=== PATIENT | male | born 1965 | race Caucasian/White ===

== ENCOUNTER 2017-08-18 05:09 | Emergency (ER) | payer BC ==
[~2017-08-18] VITALS: Ht 185.4 cm; Wt 97.6 kg
[~2017-08-18 05:09] MED LIST: ALPR-623 PO; IRBE150T51 PO; NITR0.4T51 SL; PANT40TA4 PO; TRAZ-143 PO
[2017-08-18] MEDS ORDERED: LORazepam 2 mg/ml vial IM ONE (05:25)
[2017-08-18] MEDS ORDERED: dexamethasone sod phosphate 10mg/ml inj IV STA (05:32)
[2017-08-18] MEDS ORDERED: LORazepam 2 mg/ml vial IV ONE (05:35)
[2017-08-18] MEDS ORDERED: ALB0.5UD IH (07:07)
[2017-08-18] MEDS ORDERED: albuterol 2.5 MG/3 ML nebule NEB ONE (07:40)
[2017-08-18 08:22] VITALS: BP 187/117
== END 2017-08-18 08:25 | disposition home or self-care (01) ==
LOC: ER 05:10
DX: F41.1 Generalized anxiety disorder (principal); R06.02 Shortness of breath; I10 Essential (primary) hypertension; Z90.49 Acquired absence of other specified parts of digestive tract; Z98.890 Other specified postprocedural states; Z88.8 Allergy status to other drugs, medicaments and biological substances; Z91.013 Allergy to seafood; Z79.899 Other long term (current) drug therapy
CPT/HCPCS: 71045; 93005; 94640; 94760; 96374; 96375; 99284; J1100; J2060

== ENCOUNTER 2018-07-16 20:32 | Emergency (ER) | payer BC ==
[~2018-07-16] VITALS: Ht 182.9 cm; Wt 84.4 kg
[~2018-07-16 20:32] MED LIST changes: -TRAZ-143 PO; +TRAZ-218 PO
[2018-07-16 21:37] VITALS: BP 157/116
[2018-07-16] MEDS ORDERED: normal saline 1000ML IV soln IVB ONE (21:50)
[2018-07-16] MEDS ORDERED: benzonatate 100mg capsule PO ONE (21:50)
[2018-07-16] MEDS ORDERED: LORazepam 2 mg/ml vial IV ONE (21:50)
[2018-07-16] MEDS ORDERED: ALBU18HF2 INH (21:52)
[2018-07-16] MEDS ORDERED: BENZ-16 PO (21:52)
[2018-07-16] MEDS ORDERED: INHA1INH2 (21:52)
[2018-07-16 22:18] LABS: BASOPHILS % (AUTO) 0.5 % (0-1); EOSINOPHILS # (AUTO) 0.2 X10'3 (0-0.9); EOSINOPHILS % (AUTO) 2.5 % (0-6); HEMATOCRIT 44.8 % (42.0-52.0); HEMOGLOBIN 15.3 g/dl (14.0-17.9); LYMPHOCYTES # (AUTO) 1.7 X10'3 (1.1-4.8); LYMPHOCYTES % (AUTO) 22.8 % (21-51); MEAN CORPUSCULAR HEMOGLOBIN 29.3 PG (27.0-31.0); MEAN CORPUSCULAR HGB CONC 34.1 g/dL (33.0-36.5); MEAN CORPUSCULAR VOLUME 86.1 FL (78-98); MONOCYTES # (AUTO) 0.4 X10'3 (0-0.9); MONOCYTES % (AUTO) 6.1 % (2-12); NEUTROPHILS # (AUTO) 4.9 X10'3 (1.8-7.7); NEUTROPHILS % (AUTO) 68.1 % (42-75); PLATELET COUNT 319 X10'3 (140-440); RED BLOOD COUNT 5.21 X10'6 (4.70-6.10); RED CELL DISTRIBUTION WIDTH 13.6 % (11.5-14.5); WHITE BLOOD COUNT 7.2 X10'3 (4.5-11.0)
[2018-07-16 22:34] LABS: ALANINE AMINOTRANSFERASE 20 U/L (12-78); ALBUMIN 3.7 G/DL (3.4-5.0); ALKALINE PHOSPHATASE 68 IU/L (46-116); ANION GAP 12 (8-16); ASPARTATE AMINO TRANSFERASE 13 U/L (10-37); BILIRUBIN,TOTAL 0.5 MG/DL (0.1-1.0); BLOOD UREA NITROGEN 17 MG/DL (7-18); CALCIUM 8.8 MG/DL (8.5-10.1); CHLORIDE 103 MMOL/L (99-107); CREATININE 1.06 MG/DL (0.60-1.10); GLUCOSE 112 MG/DL (70-104); POTASSIUM 3.4 MMOL/L (3.5-5.1); SODIUM 141 MMOL/L (135-145); TOTAL CARBON DIOXIDE 26.2 MMOL/L (24-32); TOTAL PROTEIN 7.5 G/DL (6.4-8.2); eGFR 73 ML/MIN
== END 2018-07-16 23:12 | disposition home or self-care (01) ==
LOC: ER 20:33
DX: R06.02 Shortness of breath (principal); R05 Cough; R06.00 Dyspnea, unspecified; J02.9 Acute pharyngitis, unspecified; R09.89 Other specified symptoms and signs involving the circulatory and respiratory systems; I10 Essential (primary) hypertension; Z90.49 Acquired absence of other specified parts of digestive tract; Z91.013 Allergy to seafood; Z79.899 Other long term (current) drug therapy
CPT/HCPCS: 36415; 71046; 80053; 85025; 93005; 96374; 99284; J2060; J7030

== ENCOUNTER 2018-12-30 23:06 | Emergency (ER) | payer BC ==
[~2018-12-30] VITALS: Ht 182.9 cm; Wt 96.4 kg
[~2018-12-30 23:06] MED LIST changes: +ALBU18HF2 INH; +INHA1INH2; -TRAZ-218 PO; +TRAZ-251 PO
[2018-12-30 23:45] LABS: BASOPHILS % (AUTO) 0.6 % (0-1); EOSINOPHILS # (AUTO) 0.2 X10'3 (0-0.9); EOSINOPHILS % (AUTO) 2.7 % (0-6); HEMATOCRIT 45.1 % (42.0-52.0); HEMOGLOBIN 15.5 g/dl (14.0-17.9); LYMPHOCYTES # (AUTO) 1.5 X10'3 (1.1-4.8); MEAN CORPUSCULAR HEMOGLOBIN 29.8 PG (27.0-31.0); MEAN CORPUSCULAR HGB CONC 34.3 g/dL (33.0-36.5); MEAN CORPUSCULAR VOLUME 86.8 FL (78-98); MONOCYTES # (AUTO) 0.6 X10'3 (0-0.9); MONOCYTES % (AUTO) 8.8 % (2-12); NEUTROPHILS # (AUTO) 4.9 X10'3 (1.8-7.7); NEUTROPHILS % (AUTO) 66.9 % (42-75); PLATELET COUNT 271 X10'3 (140-440); RED BLOOD COUNT 5.19 X10'6 (4.70-6.10); RED CELL DISTRIBUTION WIDTH 13.4 % (11.5-14.5); WHITE BLOOD COUNT 7.3 X10'3 (4.5-11.0)
--- NOTE | 2018-12-30 23:48 | NUR ---
Patient laying on gurney, reports headache 10/10, BP is elevated. Labs and EKG completed, pending MD lafleur
[2018-12-30 23:53] LABS: PARTIAL THROMBOPLASTIN TIME 28 SECONDS (22-32)
[2018-12-30 23:56] LABS: ALANINE AMINOTRANSFERASE 27 U/L (12-78); ALBUMIN 3.6 G/DL (3.4-5.0); ALKALINE PHOSPHATASE 57 IU/L (46-116); ANION GAP 10 (8-16); ASPARTATE AMINO TRANSFERASE 14 U/L (10-37); BILIRUBIN,TOTAL 0.5 MG/DL (0.1-1.0); BLOOD UREA NITROGEN 15 MG/DL (7-18); BUN/CREATININE RATIO 12.8 (5.4-32.0); CHLORIDE 105 MMOL/L (99-107); CREATININE 1.17 MG/DL (0.60-1.10); GLUCOSE 103 MG/DL (70-104); POTASSIUM 3.5 MMOL/L (3.5-5.1); SODIUM 142 MMOL/L (135-145); TOTAL CARBON DIOXIDE 27.3 MMOL/L (24-32); TOTAL PROTEIN 7.2 G/DL (6.4-8.2); eGFR 65 ML/MIN
[2018-12-31] MEDS ORDERED: amLODIPine 5mg tablet PO ONE (01:05)
[2018-12-31] MEDS ORDERED: normal saline 1000ML IV soln IVB ONE (01:05)
[2018-12-31] MEDS ORDERED: proCHLORperazine 10 MG/2 ml inj IV ONE (01:05)
[2018-12-31] MEDS ORDERED: hydrALAZINE 20mg/ml inj. IV ONE (01:05)
[2018-12-31] MEDS ORDERED: diphenhydrAMINE 50 mg/ml inj IV ONE (02:15)
[2018-12-31] MEDS ORDERED: morphine 4 MG/ML inj SYRINge IV ONE (02:15)
[2018-12-31] MEDS ORDERED: LORazepam 2 mg/ml vial IV ONE (02:25)
[2018-12-31 03:54] VITALS: BP 157/117
[2018-12-31] MEDS ORDERED: hydrALAZINE 20mg/ml inj. IV STA (04:05)
[2018-12-31] MEDS ORDERED: hyDRALAzine 10mg tablet PO SCH (04:05)
[2018-12-31] MEDS ORDERED: AMLO10TA4 PO (04:45)
== END 2018-12-31 04:57 | disposition home or self-care (01) ==
LOC: ER 23:07
DX: I10 Essential (primary) hypertension (principal); R42 Dizziness and giddiness; R51 Headache; R79.1 Abnormal coagulation profile; Z90.49 Acquired absence of other specified parts of digestive tract; Z98.890 Other specified postprocedural states; Z60.2 Problems related to living alone; Z88.6 Allergy status to analgesic agent; Z91.013 Allergy to seafood; Z91.041 Radiographic dye allergy status; Z79.899 Other long term (current) drug therapy
CPT/HCPCS: 36415; 70450; 71045; 80053; 84484; 85025; 85610; 85730; 93005; 96361; 96374; 96375; 96376; 99284; J0360; J0780; J1200; J2060; J2270; J7030

== ENCOUNTER 2019-07-21 20:24 | Inpatient (IN) | payer BC ==
[~2019-07-21] VITALS: Ht 182.9 cm; Wt 102.3 kg
[~2019-07-21 20:24] MED LIST changes: -ALPR-623 PO; +AMLO10TA4 PO; -INHA1INH2; -IRBE150T51 PO; -NITR0.4T51 SL; -PANT40TA4 PO; -TRAZ-251 PO
[2019-07-21] MEDS ORDERED: aspirin 81mg tab.chew PO ONE (20:30)
[2019-07-21 20:51] LABS: BASOPHILS # (AUTO) 0.1 X10'3 (0-0.2); BASOPHILS % (AUTO) 0.9 % (0-1); EOSINOPHILS # (AUTO) 0.2 X10'3 (0-0.9); EOSINOPHILS % (AUTO) 2.7 % (0-6); HEMATOCRIT 45.4 % (42.0-52.0); HEMOGLOBIN 15.8 g/dl (14.0-17.9); LYMPHOCYTES # (AUTO) 1.7 X10'3 (1.1-4.8); LYMPHOCYTES % (AUTO) 23.4 % (21-51); MEAN CORPUSCULAR HEMOGLOBIN 29.6 PG (27.0-31.0); MEAN CORPUSCULAR HGB CONC 34.8 g/dL (33.0-36.5); MEAN PLATELET VOLUME 8.1 FL (7.4-10.4); MONOCYTES # (AUTO) 0.6 X10'3 (0-0.9); NEUTROPHILS # (AUTO) 4.6 X10'3 (1.8-7.7); PLATELET COUNT 299 X10'3 (140-440); RED BLOOD COUNT 5.35 X10'6 (4.70-6.10); RED CELL DISTRIBUTION WIDTH 13.6 % (11.5-14.5); WHITE BLOOD COUNT 7.1 X10'3 (4.5-11.0)
[2019-07-21 21:00] LABS: ALANINE AMINOTRANSFERASE 33 U/L (12-78); ALBUMIN/GLOBULIN RATIO 1.1 (1.1-1.5); ALKALINE PHOSPHATASE 67 IU/L (46-116); ANION GAP 11 (8-16); ASPARTATE AMINO TRANSFERASE 22 U/L (10-37); BILIRUBIN,TOTAL 0.6 MG/DL (0.1-1.0); BLOOD UREA NITROGEN 16 MG/DL (7-18); BUN/CREATININE RATIO 14.5 (5.4-32.0); CALCIUM 9.3 MG/DL (8.5-10.1); CHLORIDE 106 MMOL/L (99-107); GLUCOSE 98 MG/DL (70-104); POTASSIUM 3.7 MMOL/L (3.5-5.1); SODIUM 142 MMOL/L (135-145); TOTAL CARBON DIOXIDE 25.4 MMOL/L (24-32); TOTAL PROTEIN 7.8 G/DL (6.4-8.2); eGFR 69 ML/MIN
[2019-07-21 21:08] LABS: D-DIMER < 0.19 MG/L FEU (0-0.50)
[2019-07-21] MEDS: nitroGLYCERIN 0.4mg SUBLingual tab SL PRN ×3 (21:32→21:42)
[2019-07-21] MEDS ORDERED: mag hydrox/Alum hydrox/simeth 30ml oral suspension PO PRN (23:25)
[2019-07-21] MEDS ORDERED: magnesium hydroxide 30ml (MOM) UD suspension PO PRN (23:25)
[2019-07-21] MEDS ORDERED: ondansetron/PF 4mg/2ml inj IV PRN (23:25)
[2019-07-21] MEDS ORDERED: losartan 50mg tablet PO ONE (23:30)
[2019-07-22] VITALS (12 sets, daily range): BP systolic 133–172; BP diastolic 98–113
--- NOTE | 2019-07-22 00:14 | NUR ---
Dr. Riley, BP 166/103, no chest pain noted. pt c/o headache. cozaar administered, no new orders will continue to monitor HTN, no new orders
--- NOTE | 2019-07-22 00:14 | NUR ---
Patient in room MED 316. I have received report from SEMICONDUCTOR MANUFACTURING TECHNICIAN and had the opportunity to ask questions and assume patient care.
[2019-07-22] MEDS: acetaminophen 325mg tablet PO PRN ×3 (00:18→21:09)
[2019-07-22 03:17] LABS: BASOPHILS # (AUTO) 0.1 X10'3 (0-0.2); BASOPHILS % (AUTO) 0.8 % (0-1); EOSINOPHILS # (AUTO) 0.2 X10'3 (0-0.9); HEMATOCRIT 43.9 % (42.0-52.0); HEMOGLOBIN 14.9 g/dl (14.0-17.9); LYMPHOCYTES # (AUTO) 1.6 X10'3 (1.1-4.8); LYMPHOCYTES % (AUTO) 24.1 % (21-51); MEAN CORPUSCULAR HEMOGLOBIN 28.8 PG (27.0-31.0); MEAN CORPUSCULAR HGB CONC 33.9 g/dL (33.0-36.5); MEAN CORPUSCULAR VOLUME 84.9 FL (78-98); MEAN PLATELET VOLUME 8.3 FL (7.4-10.4); MONOCYTES # (AUTO) 0.5 X10'3 (0-0.9); NEUTROPHILS # (AUTO) 4.3 X10'3 (1.8-7.7); NEUTROPHILS % (AUTO) 64.1 % (42-75); PLATELET COUNT 301 X10'3 (140-440); RED BLOOD COUNT 5.17 X10'6 (4.70-6.10); RED CELL DISTRIBUTION WIDTH 13.6 % (11.5-14.5); WHITE BLOOD COUNT 6.7 X10'3 (4.5-11.0)
[2019-07-22 03:23] LABS: ALANINE AMINOTRANSFERASE 29 U/L (12-78); ALBUMIN 3.6 G/DL (3.4-5.0); ALBUMIN/GLOBULIN RATIO 1.1 (1.1-1.5); ALKALINE PHOSPHATASE 60 IU/L (46-116); ANION GAP 9 (8-16); ASPARTATE AMINO TRANSFERASE 19 U/L (10-37); BILIRUBIN,TOTAL 0.7 MG/DL (0.1-1.0); BLOOD UREA NITROGEN 15 MG/DL (7-18); CALCIUM 8.6 MG/DL (8.5-10.1); CHLORIDE 105 MMOL/L (99-107); GLUCOSE 101 MG/DL (70-104); POTASSIUM 3.5 MMOL/L (3.5-5.1); SODIUM 141 MMOL/L (135-145); TOTAL CARBON DIOXIDE 27.3 MMOL/L (24-32); eGFR 78 ML/MIN
[2019-07-22 03:26] LABS: CHOL/HDL RATIO 4.7 (0.00-4.99); CHOLESTEROL 189 MG/DL (0-200); HDL CHOLESTEROL 40 MG/DL (35-60); LDL CHOLESTEROL 134 MG/DL (50-100); TRIGLYCERIDES 74 MG/DL (20-135)
--- NOTE | 2019-07-22 06:20 | NUR ---
Patient in room MED 316. I have received report from Fariba AKHTAR and had the opportunity to ask questions and assume patient care.
--- NOTE | 2019-07-22 06:29 | NUR ---
Problems reprioritized. Patient report given, questions answered & plan of care reviewed with Alma AKHTAR.
[2019-07-22] MEDS: heparin, porcine 5000 units/ml vial SQ SCH ×2 (08:03→21:04)
[2019-07-22] MEDS: amLODIPine 5mg tablet PO SCH (08:03)
[2019-07-22] MEDS: aspirin 81mg tablet.DR PO SCH (08:03)
[2019-07-22] MEDS ORDERED: furosemide 20 MG/2 ML vial IV ONE (08:20)
--- NOTE | 2019-07-22 10:32 | NUR ---
Paged Dr. Perez, "[facility]- [facility], [address] ACCE unit (Intake 580, Output 800) Recent BP was 161/110 and still has MILLARD. Orders for BP?"
--- NOTE | 2019-07-22 12:12 | NUR ---
Called Dr. Perez re: elevated BP, Made MD aware that patient voided 800 cc after Lasix 20 IVd. Received Lasix 20 mg IV BID and Lisinopril 10 mg x 1 to see how his body responds. Will cont. to monitor.
[2019-07-22] MEDS ORDERED: lisinopril 10 MG tablet PO ONE (12:15)
--- NOTE | 2019-07-22 14:54 | NUR ---
Paged hospitalist, "[facility] 1038- [address] ELEVATED BP continues, most recent 157/111 1.5 hrs post Lisinopril adminstration. May I have preferred parameters on BP?" Waiting on orders.
[2019-07-22] MEDS ORDERED: cloNIDine 0.1 mg tablet PO ONE (15:15)
[2019-07-22] MEDS ORDERED: aminophylline 250mg/10ml inj. IV PRN (15:30)
[2019-07-22] MEDS ORDERED: metoprolol tartrate 1mg/ml inj IV PRN (15:30)
[2019-07-22] MEDS ORDERED: nitroGLYCERIN 0.4mg SUBLingual tab SL PRN (15:30)
[2019-07-22] MEDS ORDERED: regadenoson 0.4mg/5ml syringe IV ONE (15:30)
--- NOTE | 2019-07-22 16:51 | NUR ---
Called Dr. Perez to make aware of blood pressure after clonidine 0.1 mg administration. No new orders.
--- NOTE | 2019-07-22 18:05 | NUR ---
Problems reprioritized. Patient report given, questions answered & plan of care reviewed with Fariba AKHTAR.
[2019-07-22] MEDS: cloNIDine 0.1 mg tablet PO SCH (21:02)
[2019-07-22] MEDS: furosemide 20 MG/2 ML vial IV SCH (21:04)
[2019-07-23] VITALS (12 sets, daily range): BP systolic 111–149; BP diastolic 62–104
[2019-07-23 02:48] LABS: BASOPHILS # (AUTO) 0.1 X10'3 (0-0.2); BASOPHILS % (AUTO) 0.8 % (0-1); EOSINOPHILS # (AUTO) 0.2 X10'3 (0-0.9); EOSINOPHILS % (AUTO) 2.3 % (0-6); HEMATOCRIT 45.6 % (42.0-52.0); HEMOGLOBIN 15.3 g/dl (14.0-17.9); LYMPHOCYTES # (AUTO) 1.5 X10'3 (1.1-4.8); LYMPHOCYTES % (AUTO) 22.2 % (21-51); MEAN CORPUSCULAR HEMOGLOBIN 28.6 PG (27.0-31.0); MEAN CORPUSCULAR HGB CONC 33.7 g/dL (33.0-36.5); MEAN PLATELET VOLUME 8.1 FL (7.4-10.4); MONOCYTES # (AUTO) 0.4 X10'3 (0-0.9); MONOCYTES % (AUTO) 6.5 % (2-12); NEUTROPHILS # (AUTO) 4.7 X10'3 (1.8-7.7); NEUTROPHILS % (AUTO) 68.2 % (42-75); PLATELET COUNT 317 X10'3 (140-440); RED BLOOD COUNT 5.37 X10'6 (4.70-6.10); RED CELL DISTRIBUTION WIDTH 13.7 % (11.5-14.5); WHITE BLOOD COUNT 6.9 X10'3 (4.5-11.0)
[2019-07-23 03:05] LABS: ALANINE AMINOTRANSFERASE 24 U/L (12-78); ALBUMIN 3.4 G/DL (3.4-5.0); ALKALINE PHOSPHATASE 59 IU/L (46-116); ANION GAP 7 (8-16); ASPARTATE AMINO TRANSFERASE 17 U/L (10-37); BILIRUBIN,TOTAL 0.5 MG/DL (0.1-1.0); BLOOD UREA NITROGEN 18 MG/DL (7-18); BUN/CREATININE RATIO 14.4 (5.4-32.0); CALCIUM 9.1 MG/DL (8.5-10.1); CHLORIDE 106 MMOL/L (99-107); CREATININE 1.25 MG/DL (0.60-1.10); GLUCOSE 127 MG/DL (70-104); POTASSIUM 3.7 MMOL/L (3.5-5.1); SODIUM 141 MMOL/L (135-145); TOTAL CARBON DIOXIDE 28.3 MMOL/L (24-32); TOTAL PROTEIN 6.9 G/DL (6.4-8.2); eGFR 60 ML/MIN
--- NOTE | 2019-07-23 06:20 | NUR ---
Patient in room MED 316. I have received report from GIOVANA Link and had the opportunity to ask questions and assume patient care.
--- NOTE | 2019-07-23 06:27 | NUR ---
Problems reprioritized. Patient report given, questions answered & plan of care reviewed with Leslie AKHTAR.
--- NOTE | 2019-07-23 06:32 | NUR ---
Problems reprioritized. Patient report given, questions answered & plan of care reviewed with Leslie AKHTAR.
[2019-07-23] MEDS: aspirin 81mg tablet.DR PO SCH (08:26)
[2019-07-23] MEDS: furosemide 20 MG/2 ML vial IV SCH (08:26)
[2019-07-23] MEDS: amLODIPine 5mg tablet PO SCH (08:27)
[2019-07-23] MEDS: heparin, porcine 5000 units/ml vial SQ SCH (08:27)
--- NOTE | 2019-07-23 12:27 | NUR ---
PAGER ID: [phone] MESSAGE: Dr. Marin, Patient in rm 316 on [address] [facility]. Lexiscan complete and resulted. Please advise. Thank you, Feli Nelson ACCE [id number]
[2019-07-23] MEDS: cloNIDine 0.1 mg tablet PO SCH (12:40)
[2019-07-23] MEDS ORDERED: ASPI-1071 PO (13:53)
[2019-07-23] MEDS ORDERED: ATOR20TA PO (13:53)
[2019-07-23] MEDS ORDERED: CARV3.122 PO (13:53)
[2019-07-23] MEDS ORDERED: LOSA50TA64 PO (13:53)
[2019-07-23] MEDS ORDERED: CLON0.1T2 PO (13:53)
--- NOTE | 2019-07-23 14:12 | NUR ---
AGER ID: [phone] MESSAGE: Dr. Marin, patient on ACCE rm 316, please clarify med order for Losartan. WS vs HS? Working on discharge. Thank you, Feli Nelson RN [phone]
--- NOTE | 2019-07-23 14:41 | NUR ---
Patient is discharged. All discharge instructions given to patient both verbally and in writing. The PIV was removed by the Student RN under my supervision. The cannula was intact and the patient tolerated well. All new prescriptions were called in to [facility] per patient preference. All personal items were taken with the patient. Patient was alert and oriented and in stable condition when he left the floor. He walked out with a family member and the laborer ammunition assemblyYessenia.
== END 2019-07-23 14:41 | disposition home or self-care (01) | DRG 313 ==
LOC: ER 20:25 → ED HOLD 23:37 → MED 3N 23:50
PROVIDERS: ADMIT Internal Medicine; ATTEND Family Medicine
PROC: 4A02XM4 Measurement of Cardiac Total Activity, External Approach (ICD-10-PCS; principal; 2019-07-23)
PROC: 3E033HZ Introduction of Radioactive Substance into Peripheral Vein, Percutaneous Approach (ICD-10-PCS; 2019-07-23)
DX: R07.89 Other chest pain (principal); I25.110 Atherosclerotic heart disease of native coronary artery with unstable angina pectoris; I10 Essential (primary) hypertension; J70.5 Respiratory conditions due to smoke inhalation; T59.811A Toxic effect of smoke, accidental (unintentional), initial encounter; Z79.899 Other long term (current) drug therapy; Z80.0 Family history of malignant neoplasm of digestive organs; Z81.1 Family history of alcohol abuse and dependence; Z82.49 Family history of ischemic heart disease and other diseases of the circulatory system; Z85.038 Personal history of other malignant neoplasm of large intestine; Z91.041 Radiographic dye allergy status; Z88.8 Allergy status to other drugs, medicaments and biological substances; Z91.013 Allergy to seafood
CPT/HCPCS: 36415; 70450; 71045; 78452; 80053; 80061; 83036; 83735; 83880; 84484; 85025; 85379; 87081; 93005; 93017; 93306; 99285; A9500; G0378; J1644; J1940; J2785

== ENCOUNTER 2020-05-18 22:56 | Emergency (ER) | payer OTHER ==
[~2020-05-18] VITALS: Ht 182.9 cm; Wt 111.4 kg
[~2020-05-18 22:56] MED LIST changes: -ALBU18HF2 INH; +ASPI-1071 PO; +CARV3.122 PO; +CLON0.1T2 PO; +LOSA50TA64 PO
[2020-05-18 23:15] LABS: BASOPHILS # (AUTO) 0.1 X10'3 (0-0.2); BASOPHILS % (AUTO) 0.9 % (0-1); EOSINOPHILS # (AUTO) 0.2 X10'3 (0-0.9); EOSINOPHILS % (AUTO) 2.2 % (0-6); HEMATOCRIT 47.2 % (42.0-52.0); HEMOGLOBIN 16.4 g/dl (14.0-17.9); LYMPHOCYTES % (AUTO) 25.3 % (21-51); MEAN CORPUSCULAR HGB CONC 34.8 g/dL (33.0-36.5); MEAN CORPUSCULAR VOLUME 86.2 FL (78-98); MEAN PLATELET VOLUME 8.2 FL (7.4-10.4); MONOCYTES # (AUTO) 0.5 X10'3 (0-0.9); MONOCYTES % (AUTO) 6.2 % (2-12); NEUTROPHILS # (AUTO) 5.2 X10'3 (1.8-7.7); NEUTROPHILS % (AUTO) 65.4 % (42-75); PLATELET COUNT 300 X10'3 (140-440); RED BLOOD COUNT 5.47 X10'6 (4.70-6.10); RED CELL DISTRIBUTION WIDTH 13.1 % (11.5-14.5)
[2020-05-18 23:32] LABS: ALANINE AMINOTRANSFERASE 38 U/L (12-78); ALKALINE PHOSPHATASE 76 IU/L (46-116); ANION GAP 9 (8-16); ASPARTATE AMINO TRANSFERASE 20 U/L (10-37); BILIRUBIN,TOTAL 0.4 MG/DL (0.1-1.0); BLOOD UREA NITROGEN 17 MG/DL (7-18); BUN/CREATININE RATIO 14.2 (5.4-32.0); CALCIUM 8.8 MG/DL (8.5-10.1); CHLORIDE 104 MMOL/L (99-107); GLUCOSE 123 MG/DL (70-104); POTASSIUM 3.4 MMOL/L (3.5-5.1); SODIUM 140 MMOL/L (135-145); TOTAL PROTEIN 7.9 G/DL (6.4-8.2); eGFR 63 ML/MIN
[2020-05-19] MEDS ORDERED: aspirin 81mg tab.chew PO ONE
[2020-05-19] MEDS ORDERED: HYDROchlorothiazide 25mg tablet PO ONE (00:45)
[2020-05-19] MEDS ORDERED: lisinopril 10 MG tablet PO ONE (00:45)
--- NOTE | 2020-05-19 01:30 | NUR ---
Pt resting in bed, blanket given.
[2020-05-19] MEDS ORDERED: ketorolac tromethamine 15mg/ml inj. IM ONE (02:10)
[2020-05-19] MEDS ORDERED: cloNIDine 0.1 mg tablet PO ONE (02:10)
[2020-05-19] MEDS ORDERED: acetaminophen 325mg tablet PO ONE (02:10)
[2020-05-19] MEDS ORDERED: LISI1TAB32 PO (02:57)
--- NOTE | 2020-05-19 03:14 | NUR ---
Pt refused the howe virus test
[2020-05-19 03:15] VITALS: BP 183/117
== END 2020-05-19 03:19 | disposition home or self-care (01) ==
LOC: ER 22:56
DX: R07.89 Other chest pain (principal); R51.9 Headache, unspecified; B34.9 Viral infection, unspecified; I10 Essential (primary) hypertension; Z90.49 Acquired absence of other specified parts of digestive tract; Z98.890 Other specified postprocedural states
CPT/HCPCS: 36415; 70450; 71045; 80053; 83880; 84484; 85025; 96372; 99285; J1885; 93005

== ENCOUNTER 2021-06-08 19:04 | Emergency (ER) | payer BC, OTHER ==
[~2021-06-08] VITALS: Ht 182.9 cm; Wt 100.0 kg
[~2021-06-08 19:04] MED LIST changes: +LISI1TAB49 PO
[2021-06-08 20:55] LABS: BASOPHILS % (AUTO) 0.6 % (0-1); EOSINOPHILS # (AUTO) 0.3 X10'3 (0-0.9); EOSINOPHILS % (AUTO) 4.2 % (0-6); HEMATOCRIT 45.7 % (42.0-52.0); HEMOGLOBIN 15.6 g/dl (14.0-17.9); LYMPHOCYTES # (AUTO) 1.2 X10'3 (1.1-4.8); LYMPHOCYTES % (AUTO) 19.3 % (21-51); MEAN CORPUSCULAR HEMOGLOBIN 29.7 PG (27.0-31.0); MEAN CORPUSCULAR HGB CONC 34.1 g/dL (33.0-36.5); MEAN CORPUSCULAR VOLUME 87.2 FL (78-98); MEAN PLATELET VOLUME 7.8 FL (7.4-10.4); MONOCYTES # (AUTO) 0.5 X10'3 (0-0.9); MONOCYTES % (AUTO) 7.5 % (2-12); NEUTROPHILS # (AUTO) 4.3 X10'3 (1.8-7.7); NEUTROPHILS % (AUTO) 68.4 % (42-75); PLATELET COUNT 302 X10'3 (140-440); RED BLOOD COUNT 5.23 X10'6 (4.70-6.10); WHITE BLOOD COUNT 6.3 X10'3 (4.5-11.0)
[2021-06-08 20:59] LABS: CLARITY,URINE CLOUDY (Clear); COLOR,URINE YELLOW (Yellow); GLUCOSE, URINE NEGATIVE (Neg); KETONES,URINE NEGATIVE (Neg); LEUKOCYTE ESTERASE ,URINE NEGATIVE (Neg); NITRITES, URINE NEGATIVE (Neg); OCCULT BLOOD,URINE LARGE (Neg); PROTEIN,URINE NEGATIVE (Neg); UROBILINOGEN,URINE 0.2 E.U/dL (0.2-1.0)
[2021-06-08 21:04] LABS: UA COLLECTION TYPE CLN CATCH MIDSTREAM
[2021-06-08 21:04] LABS: ALANINE AMINOTRANSFERASE 36 U/L (12-78); ALKALINE PHOSPHATASE 76 IU/L (46-116); ANION GAP 9 (8-16); ASPARTATE AMINO TRANSFERASE 22 U/L (10-37); BILIRUBIN,TOTAL 0.5 MG/DL (0.1-1.0); BLOOD UREA NITROGEN 19 MG/DL (7-18); CALCIUM 9.1 MG/DL (8.5-10.1); CHLORIDE 103 MMOL/L (99-107); GLUCOSE 103 MG/DL (70-104); POTASSIUM 3.9 MMOL/L (3.5-5.1); SODIUM 140 MMOL/L (135-145); eGFR 77 ML/MIN
[2021-06-08 21:15] LABS: LIPASE 102 U/L (73-393)
[2021-06-08 21:16] LABS: SQUAMOUS EPITHELIAL CELL,UR FEW /LPF (FEW)
[2021-06-08 21:17] LABS: RBC,URINE TNTC /HPF (0-2)
[2021-06-08 21:19] LABS: BACTERIA,URINE NONE SEEN /HPF (Neg); WBC,URINE 0-4 /HPF (0-4)
[2021-06-08] MEDS ORDERED: iohexol 350MG/ML 100ml bottle IV ONE (23:35)
[2021-06-09] MEDS ORDERED: hydrALAZINE 20mg/ml inj. IV ONE (02:05)
[2021-06-09 02:43] VITALS: BP 165/107
== END 2021-06-09 02:45 | disposition home or self-care (01) ==
LOC: ER 19:05
DX: R07.89 Other chest pain (principal); R31.9 Hematuria, unspecified; I10 Essential (primary) hypertension; R20.0 Anesthesia of skin; E78.00 Pure hypercholesterolemia, unspecified; I25.2 Old myocardial infarction; Z90.89 Acquired absence of other organs; Z98.890 Other specified postprocedural states; Z60.2 Problems related to living alone; Z88.8 Allergy status to other drugs, medicaments and biological substances; Z91.013 Allergy to seafood; Z79.82 Long term (current) use of aspirin; Z79.899 Other long term (current) drug therapy
CPT/HCPCS: 36415; 71045; 71250; 74176; 80053; 81001; 83690; 83880; 84484; 85025; 93005; 96374; 99285; J0360; Q9967